=== PATIENT | female | born 1985 ===

== ENCOUNTER 2025-09-08 01:54 | Emergency (ER) | payer MEDICAID ==
[~2025-09-08] VITALS: Ht 157.5 cm; Wt 81.6 kg
[2025-09-08 01:57] VITALS: BP 142/98
[2025-09-08 02:43] VITALS: BP 142/98; TEMP 98.6; O2SAT 95
== END 2025-09-08 02:44 | disposition home or self-care (01) ==
LOC: ER 02:01
DX: R03.0 Elevated blood-pressure reading, without diagnosis of hypertension (principal); R10.9 Unspecified abdominal pain; F17.200 Nicotine dependence, unspecified, uncomplicated; Z90.49 Acquired absence of other specified parts of digestive tract
CPT/HCPCS: A4606; A4663